=== PATIENT | female | born 1985 | race Caucasian/White ===

== ENCOUNTER → 2016-11-12 | Outpatient (CLI) | payer OTHER ==
[~2016-11-12] MED LIST: CYCL-36 PO; DICL75 PO; PREN0.01 PO
== END ==
LOC: HPND 11:11
PROVIDERS: ATTEND Obstetrics & Gynecology
DX: O09.811 Supervision of pregnancy resulting from assisted reproductive technology, first trimester (principal)
CPT/HCPCS: 36415; 76813

== ENCOUNTER 2017-05-15 10:12 | Inpatient (IN) | payer OTHER ==
[~2017-05-15] VITALS: Ht 170.2 cm; Wt 90.0 kg
[2017-05-15] VITALS (11 sets, daily range): BP systolic 94–112; BP diastolic 52–69; PULSE 68–93; RESP 16–20; TEMP 97.6–98.8; O2SAT 97–100
--- NOTE | 2017-05-15 11:50 | MH ---
cc: Leobardo Hoskins MD DATE OF ADMISSION: 05/15/2017 DATE OF ADMISSION: 05/15/2017 ADMITTING DIAGNOSES: 1. Term . 2. Macrosomia. 3. Polyhydramnios. HISTORY OF PRESENT ILLNESS: The patient is a 31-year-old single white female, para 0-0-1-0. LMP of 08/16/2016, EDC 05/22/2017. occurred through IUI. Ultrasound on 05/14/2017 showed EFW of 3837 grams with a large abdominal circumference and patient would like to proceed with delivery. PAST MEDICAL HISTORY: PREVIOUS SURGERY: T and A in 1988, a D and C for spontaneous in 01/2016, had postop infection. MEDICATIONS: Vitamins. ALLERGIES: NONE. TRANSFUSIONS: None. SOCIAL HISTORY: She is single, works at [employer]. Alcohol, tobacco and drugs are none. FAMILY HISTORY: Noncontributory. PHYSICAL EXAMINATION: GENERAL: A well-nourished, well-developed white female. VITAL SIGNS: Stable. HEENT: Normal. CHEST: Clear. HEART: Regular rate. BREASTS: Symmetrical. ABDOMEN: Benign. PELVIC: Vagina is normal. Cervix normal, long, thick, and closed. Vertex is ballottable. IMAGING STUDIES: Ultrasound on 05/14/2017 showed an EFW of 3837 grams, abdominal circumference larger than the abdomen. Anterior placenta, NISH of 26.9. ASSESSMENT: As above. PLAN: She is now admitted for primary . While in the office, we discussed the benefits and risk of versus trial of labor and the patient wished for a delivery. The risks, benefits and complications were explained and accepted. MD AKHIL Dickerson/SB , 11:27 AM , 11:49 AM
[2017-05-15] MEDS ORDERED: KETOROLAC TROMETHAMINE 30 MG/ML (IVP) VIAL IV PUSH ONE (12:00)
[2017-05-15] MEDS ORDERED: ceFAZolin INJ 1,000 MG VIAL IV ONE (12:00)
[2017-05-15] MEDS ORDERED: DEXAMETHASONE SOD PHOS 4 MG/ML VIAL IV ONE (12:00)
[2017-05-15] MEDS ORDERED: OXYTOCIN 10 UNIT/ML AMP IV ONE (12:00)
[2017-05-15] MEDS ORDERED: PHENYLEPH/NS 1000 MCG/10 ML SYR IV ONE (12:00)
[2017-05-15] MEDS ORDERED: ONDANSETRON HCL 4 MG/2 ML VIAL IV ONE (12:00)
[2017-05-15] MEDS ORDERED: LACTATED RINGER'S 1000 ML IV ONE (15:30)
[2017-05-15] MEDS ORDERED: CITRIC ACID-SODIUM CITRATE LIQ 30 ML UDC PO SCH (15:30)
[2017-05-15 16:00] LABS: AUTOMATED NEUTROPHIL # 9.6 TH/MM3 (1.8-7.7); BASOPHIL % 0.2 % (0.0-2.0); EOSINOPHIL # 0.1 TH/MM3 (0-0.4); EOSINOPHIL % 0.5 % (0.0-4.0); HEMATOCRIT 37.4 % (35.0-46.0); HEMOGLOBIN 12.8 GM/DL (11.6-15.3); LYMPH % 10.5 % (9.0-44.0); LYMPHOCYTE # 1.2 TH/MM3 (1.0-4.8); MEAN CELL VOLUME 96.8 FL (80.0-100.0); MEAN CORPUSCULAR HEMOGLOBIN 33.1 PG (27.0-34.0); MEAN CORPUSCULAR HGB CONC 34.2 % (32.0-36.0); MEAN PLATELET VOLUME 8.6 FL (7.0-11.0); MONO % 6.7 % (0.0-8.0); MONOCYTE # 0.8 TH/MM3 (0-0.9); NEUT % 82.1 % (16.0-70.0); PLATELET COUNT 144 TH/MM3 (150-450); RED BLOOD COUNT 3.86 MIL/MM3 (4.00-5.30); RED CELL DISTRIBUTION WIDTH 13.9 % (11.6-17.2); WHITE BLOOD COUNT 11.6 TH/MM3 (4.0-11.0)
[2017-05-15] MEDS ORDERED: LACTATED RINGER'S 1000 ML IV SCH (16:00)
[2017-05-15 16:24] LABS: BILIRUBIN, URINE NEG (NEG); BLOOD, URINE NEG (NEG); GLUCOSE,URINE NEG (NEG); KETONE, URINE 40 mg/dL (NEG); MUCUS URINE FEW /lpf (OCC); NITRITE,URINE NEG (NEG); PH, URINE 6.5 (5.0-8.5); SQUAMOUS EPITHELIAL CELL URINE 47 /hpf (0-5); TRANSITIONAL EPI CELLS, URINE <1 /hpf; URINE COLOR YELLOW (YELLW/STRAW); URINE LEUKOCYTE ESTERASE SMALL (NEG)
[2017-05-15] MEDS ORDERED: MORPHINE SULFATE PF 5 MG/10 ML VIAL ONE (16:45)
[2017-05-15] MEDS ORDERED: ACETAMINOPHEN 1000 MG/100 ML 100 ML IV ONE (16:45)
[2017-05-15] MEDS ORDERED: TRIA.025%T TOPICAL (17:11)
[2017-05-15] MEDS ORDERED: OMEGCAP PO (17:11)
[2017-05-15] MEDS ORDERED: VITA2000 PO (17:11)
[2017-05-15] MEDS ORDERED: FOLI400T PO (17:11)
[2017-05-15] MEDS ORDERED: FERR325T18 PO (17:11)
[2017-05-15] MEDS ORDERED: MIRA3350 PO (17:11)
[2017-05-15] MEDS ORDERED: BENA25TA6 (17:11)
[2017-05-15] MEDS ORDERED: TYLE325T PO (17:11)
[2017-05-15] MEDS ORDERED: COLA100C5 PO (17:11)
[2017-05-15] MEDS ORDERED: EPIDURAL-DIPHENHYDRAMINE HCL 50 MG CAP PO PRN (17:30)
[2017-05-15] MEDS ORDERED: EPIDURAL-DO NOT ADMINISTER ANTICOAGULANTS PRN (17:30)
[2017-05-15] MEDS ORDERED: EPIDURAL-DIPHENHYDRAMINE HCL 50 MG/ML VIAL IV PUSH PRN (17:30)
[2017-05-15] MEDS ORDERED: EPIDURAL-NALOXONE HCL 0.4 MG/ML AMP IV PUSH PRN (17:30)
[2017-05-15] MEDS ORDERED: EPIDURAL-NO SYSTEMIC NARCOTICS PRN (17:30)
[2017-05-15] MEDS ORDERED: ONDANSETRON HCL 4 MG/2 ML VIAL IVP PRN (17:45)
[2017-05-15] MEDS ORDERED: ACETAMINOPHEN 1000 MG/100 ML VIAL IV SCH (17:45)
[2017-05-15] MEDS ORDERED: MEASLES, MUMPS, RUBELLA VACCINE 0.5 ML VIAL SQ ONE (17:45)
[2017-05-15] MEDS ORDERED: oxyCODONE/ACETAMINOPHEN 5 MG/325 MG TAB PO PRN (17:45)
[2017-05-15] MEDS ORDERED: KETOROLAC TROMETHAMINE 60 MG/2 ML (IM) VIAL IM PRN (17:45)
[2017-05-15] MEDS ORDERED: OXYTOCIN 30 UNITS-500ML PREMIX 500 ML IV ONE (17:45)
[2017-05-15] MEDS ORDERED: KETOROLAC TROMETHAMINE 30 MG/ML (IVP) VIAL IV PUSH PRN (17:45)
[2017-05-15] MEDS ORDERED: SIMETHICONE 80 MG CHEWABLE TAB PO PRN (17:45)
[2017-05-15] MEDS ORDERED: LACTATED RINGER'S 1000 ML INJ 1,000 ML IV SCH (18:00)
[2017-05-15] MEDS ORDERED: OXYTOCIN 30 UNITS-500ML PREMIX 500 ML IV PRN (18:15)
[2017-05-15] MEDS ORDERED: OXYTOCIN 30 UNITS-500ML PREMIX 500 ML ONE (19:25)
--- NOTE | 2017-05-15 20:21 | MP ---
cc: Leobardo Hoskins MD, John A MD DATE OF OPERATION: 05/15/2017 PREOPERATIVE DIAGNOSES: 1. Term . 2. macrosomia. POSTOPERATIVE DIAGNOSES: 1. Term . 2. macrosomia. PROCEDURE PERFORMED: Primary low transverse section. ANESTHESIA: Spinal. SURGEON: Leobardo Hoskins MD FIGURE MODEL: JAMMIE Fairchild ESTIMATED BLOOD LOSS: About 500 mL FLUIDS: 600 mL crystalloid. OBJECTIVE FINDINGS: Following induction of adequate spinal anesthesia, the patient was prepped and draped supine on the operating table in left lateral tilt position, using sterile fashion, with the bladder being drained via Martinez catheterization. The abdomen was opened through a Pfannenstiel incision using a knife to cut down through skin to the fascia. The fascia opened transversely, stripped from the muscles. Rectus muscle split in the midline and the peritoneum opened sharply without incident. The bladder flap was taken down sharply and retracted inferiorly with the Fabricio blade. The lower uterine segment was incised transversely with a knife, extended with blunt dissection. Membranes revealed clear fluid. The baby was in the LOT position. The vacuum extractor applied to the occiput and used to gently lift the head through the uterine abdominal wound. Mouth was suctioned. The cord clamped and cut and the baby passed to awaiting team. A viable vigorous male, Apgars 8 and 9, weight 8 pounds 11 ounces. The cord blood was collected for preservation and the placenta for donation. The uterine cavity was cleaned with laps. Uterus exteriorized and closed in 2 layers running suture, first with a running locking stitch of o- Vicryl, second with a running imbricating stitch of 0 Vicryl. On posterior inspection, the uterus, tubes, and ovaries normal. The uterus was placed in the cavity. Irrigation was performed. No bleeding was evident and the bladder flap was closed with a running stitch of 3-0 Vicryl. All laps and retractors removed. Counts were correct. The anterior peritoneum closed with running stitch of 2-0 Vicryl, fascia closed with a running locking stitch of 0 Vicryl corner to midline and tied, subcutaneous with running 3-0 Vicryl and the skin with a running subcuticular 3-0 Monocryl. Dermabond applied. All counts were correct and the patient was awakened and taken to the recovery room in good condition. MD AKHIL Dickerson/SA/ , 06:27 PM , 07:08 PM [place]
[2017-05-15] MEDS ORDERED: ZOLPIDEM TARTRATE 5 MG TAB PO PRN (21:00)
[2017-05-16 00:35] VITALS: BP 103/67; PULSE 73; RESP 18; TEMP 97.8; O2SAT 98
[2017-05-16 02:00] VITALS: RESP 17
[2017-05-16] MEDS: ACETAMINOPHEN 1000 MG/100 ML 100 ML IV SCH ×2 (02:00→09:30)
[2017-05-16 04:00] VITALS: BP 103/63; PULSE 68; RESP 18; TEMP 98.4; O2SAT 99
[2017-05-16] MEDS: DOCUSATE SODIUM 50 MG/SENNA 8.6 MG TAB PO PRN ×2 (06:39→21:17)
[2017-05-16] MEDS: IBUPROFEN 600 MG TAB PO PRN ×3 (06:40→21:17)
[2017-05-16] MEDS: oxyCODONE/ACETAMINOPHEN 5 MG/325 MG TAB PO PRN ×4 (06:40→21:17)
[2017-05-16 07:30] LABS: AUTOMATED NEUTROPHIL # 13.1 TH/MM3 (1.8-7.7); BASOPHIL % 0.2 % (0.0-2.0); EOSINOPHIL % 0.1 % (0.0-4.0); HEMATOCRIT 30.3 % (35.0-46.0); HEMOGLOBIN 10.6 GM/DL (11.6-15.3); LYMPH % 9.8 % (9.0-44.0); LYMPHOCYTE # 1.6 TH/MM3 (1.0-4.8); MEAN CELL VOLUME 96.4 FL (80.0-100.0); MEAN CORPUSCULAR HEMOGLOBIN 33.6 PG (27.0-34.0); MEAN CORPUSCULAR HGB CONC 34.9 % (32.0-36.0); MEAN PLATELET VOLUME 8.7 FL (7.0-11.0); MONO % 8.5 % (0.0-8.0); MONOCYTE # 1.4 TH/MM3 (0-0.9); NEUT % 81.4 % (16.0-70.0); PLATELET COUNT 147 TH/MM3 (150-450); RED BLOOD COUNT 3.14 MIL/MM3 (4.00-5.30); RED CELL DISTRIBUTION WIDTH 13.9 % (11.6-17.2); WHITE BLOOD COUNT 16.1 TH/MM3 (4.0-11.0)
[2017-05-16 07:43] LABS: BICARBONATE 25.5 MEQ/L (21.0-32.0); CREATININE 0.38 MG/DL (0.50-1.00)
[2017-05-16 08:00] VITALS: BP 90/56; PULSE 68; RESP 18; TEMP 98.3
[2017-05-16] MEDS ORDERED: FLUCONAZOLE 100 MG TAB PO ONE (11:30)
[2017-05-16] MEDS ORDERED: PILL SPLITTER OTHER PRN (13:30)
[2017-05-16 16:30] VITALS: BP 101/58; PULSE 83; RESP 18; TEMP 98.3
[2017-05-16 20:00] VITALS: BP 94/59; PULSE 73; RESP 18; TEMP 97.8
[2017-05-16] MEDS ORDERED: PARoxetine HCL 20 MG TAB PO SCH (21:00)
[2017-05-17] MEDS: oxyCODONE/ACETAMINOPHEN 5 MG/325 MG TAB PO PRN ×6 (01:29→22:11)
[2017-05-17] MEDS: IBUPROFEN 600 MG TAB PO PRN ×3 (05:29→22:10)
[2017-05-17 07:40] VITALS: BP 89/48; PULSE 76; RESP 18; TEMP 98.1
[2017-05-17] MEDS ORDERED: DIPHTH/TETANUS/ACEL PERTUSSIS (BOOSTER) 0.5 ML VIAL/PFS IM ONE (09:00)
[2017-05-17] MEDS: DOCUSATE SODIUM 50 MG/SENNA 8.6 MG TAB PO PRN ×2 (09:43→22:11)
[2017-05-17 20:05] VITALS: BP 115/58; PULSE 76; RESP 17; TEMP 97.7
[2017-05-17] MEDS ORDERED: diphenhydrAMINE HCL 25 MG CAP PO PRN (20:30)
[2017-05-17] MEDS ORDERED: PARoxetine HCL 20 MG TAB PO SCH (21:00)
[2017-05-18] MEDS: oxyCODONE/ACETAMINOPHEN 5 MG/325 MG TAB PO PRN ×3 (02:51→11:50)
[2017-05-18] MEDS: IBUPROFEN 600 MG TAB PO PRN (07:01)
[2017-05-18] MEDS ORDERED: PARO20TA2 PO (08:10)
[2017-05-18] MEDS ORDERED: TRIA.025%T TOPICAL (08:10)
[2017-05-18] MEDS ORDERED: OXYC1TAB63 PO (08:10)
--- NOTE | 2017-05-18 08:11 | HHI.DCPOC ---
Discharge Care Plan Report Symptoms to Your Doctor -Temperature above 100.5 degrees -Redness, of incision or excessive or foul smelling drainage -Unusual pain or calf pain -Increased vaginal bleeding -Painful or difficulty urinating -Feelings of extreme sadness or anxiety after 2 weeks Goals to Promote Your Health * To prevent worsening of your condition and complications * To maintain your health at the optimal level Directions to Meet Your Goals Take your medications as prescribed Follow your dietary instruction Follow activity as directed Ensure plenty of rest for recovery Drink fluids for hydration Keep your appointments as scheduled Take your immunizations and boosters as scheduled If your symptoms worsen call your PCP, if no PCP go to Urgent Care Center or Emergency Room Smoking is Dangerous to Your Health. Avoid second hand smoke Call the 24-hour crisis hotline for domestic abuse at Leobardo Hoskins MD May 18, 2017 08:11
--- NOTE | 2017-05-18 08:39 | MD ---
cc: Leobardo Hoskins MD DATE OF DISCHARGE: 05/18/2017 ADMITTING DIAGNOSES: 1. Term . 2. macrosomia. DISCHARGE DIAGNOSES:. 1. Term . 2. macrosomia. 3. Delivered. HISTORY OF PRESENT ILLNESS: This is a 31-year-old single white female, para 0-0-1-0, with LMP of 08/16/2016, EDC of 05/22/2017. occurred through IUI. The patient progressed to term. The baby's EFW was high, with a high vertex. HOSPITAL COURSE: The patient was admitted for delivery on 05/15/2017, had delivery of a viable vigorous male. Apgars were 8 and 9, weight 8 pounds 11 ounces. The baby's name is Dario. The patient was bottle feeding. , she did well and requested resumption of Paxil, which she has used in the past for depression and anxiety. She developed an allergic rash on the abdomen from the prep and was recommended Benadryl and triamcinolone cream. She was carefully instructed in , wound instructions in care. DISCHARGE INSTRUCTIONS: Return to see me in one week. Her blood type was positive. She will take her routine medications at home, was given a script for Percocet 5 one to two p.o. every 4 hours p.r.n., #60; Paxil 20 mg p.o. daily, #31, refill 2; triamcinolone topical 0.025% b.i.d., 60 grams, refill 2. MD AKHIL Dickerson/ERAN , 08:21 AM , 08:38 AM
[2017-05-18 09:05] VITALS: BP 109/70; PULSE 84; RESP 18; TEMP 98.4
[2017-05-18 09:41] LABS: BACTERIA, URINE RARE /hpf; BILIRUBIN, URINE NEG (NEG); BLOOD, URINE LARGE (NEG); GLUCOSE,URINE NEG (NEG); KETONE, URINE NEG (NEG); MUCUS URINE FEW /lpf (OCC); NITRITE,URINE NEG (NEG); SQUAMOUS EPITHELIAL CELL URINE 1 /hpf (0-5); URINE COLOR LIGHT-YELLOW (YELLW/STRAW); URINE LEUKOCYTE ESTERASE NEG (NEG)
[2017-05-18] MEDS: DOCUSATE SODIUM 50 MG/SENNA 8.6 MG TAB PO PRN (11:49)
== END 2017-05-18 13:57 | disposition home or self-care (01) | DRG 765 ==
LOC: H2EA 14:30 → H1EA 20:13
PROVIDERS: ADMIT Obstetrics & Gynecology; ATTEND Obstetrics & Gynecology
PROC: 10D00Z1 Extraction of Products of Conception, Low, Open Approach (ICD-10-PCS; principal; 2017-05-15)
PROC: 10D07Z6 Extraction of Products of Conception, Vacuum, Via Natural or Artificial Opening (ICD-10-PCS; 2017-05-15)
DX: O36.63X0 Maternal care for excessive fetal growth, third trimester, not applicable or unspecified (principal); O40.3XX0 Polyhydramnios, third trimester, not applicable or unspecified; Z37.0 Single live birth; Z3A.00 Weeks of gestation of pregnancy not specified; R21 Rash and other nonspecific skin eruption
CPT/HCPCS: 80048; 80307; 81001; 85025; 86850; 86900; 86901; 87086; 87640; 87641; J0131; J0690; J1100; J1885; J2274; J2370; J2405; J2590; J7120